=== PATIENT | female | born 1980 | race Caucasian/White ===

== ENCOUNTER 2016-08-11 12:02 | Outpatient (CLI) | payer OTHER | END 2016-08-11 12:03 | disposition home or self-care (01) | DX: M25.551 Pain in right hip (principal); R60.0 Localized edema ==

== ENCOUNTER 2020-01-20 07:33 | Outpatient (CLI) | payer OTHER ==
--- NOTE | 2020-01-21 08:18 | Ultrasound Report ---
PROCEDURE: Abdomen Limited INDICATIONS: ABNORMAL LEVELS OF OTHER SERUM ENZYMES TECHNIQUE: Real-time focused scanning was performed of the abdomen, with image documentation. COMPARISON: None. FINDINGS: The study is limited to the right upper quadrant area at clinician request, given abnormal liver function test. Note is made of hepatomegaly with the craniocaudad length of the liver 19.5 cm. The liver echotexture is increased, diffusely, consistent with fatty infiltration. No intrahepatic b iliary distention is found. The gallbladder is surgically absent. The common duct is normal in calibe r at 3 mm. The pancreas is poorly seen due to bowel gas and body habitus. Right kidney appears normal at 11.9 cm in length and renal cortical thickness of 1.3 cm. IMPRESSION: Hepatomegaly with generalized fatty infiltration and no evidence of focal mass lesion or biliary dist ention. Prior cholecystectomy. Reviewed by: Ruben Medeiros MD on 01/21/2020 8:17 AM PDT Approved by: Ruben Medeiros MD on 01/21/2020 8:17 AM PDT Station ID: [id number]
== END 2020-01-20 07:34 | disposition home or self-care (01) ==
LOC: DI 07:33
PROVIDERS: ATTEND Internal Medicine
DX: K76.0 Fatty (change of) liver, not elsewhere classified (principal); Z90.49 Acquired absence of other specified parts of digestive tract
CPT/HCPCS: 76705

== ENCOUNTER 2022-03-26 08:00 | Outpatient (CLI) | payer OTHER ==
[2022-03-26 16:03] LABS: BASOPHILS # (AUTO) 0.1 10^3/uL (0.0-0.1); BASOPHILS % (AUTO) 0.8 %; EOSINOPHILS # (AUTO) 0.3 10^3/uL (0.0-0.7); EOSINOPHILS % (AUTO) 4.5 %; HCT - HEMATOCRIT 43.5 % (37.0-47.0); HGB - HEMOGLOBIN 14.2 g/dL (12.0-16.0); LYMPHOCYTES # (AUTO) 2.4 10^3/uL (1.5-3.5); LYMPHOCYTES % (AUTO) 37.3 %; MEAN CORPUSCULAR HEMOGLOBIN 28.7 pg (27.0-31.0); MEAN CORPUSCULAR HGB CONC 32.6 g/dL (32.0-36.0); MEAN CORPUSCULAR VOLUME 88.1 fL (81.0-99.0); MEAN PLATELET VOLUME 10.4 fL (7.9-10.8); MONOCYTES # (AUTO) 0.5 10^3/uL (0.0-1.0); MONOCYTES % (AUTO) 8.1 %; NEUTROPHILS # (AUTO) 3.2 10^3/uL (1.5-6.6); NEUTROPHILS % (AUTO) 49.3 %; PLT - PLATELET COUNT 350 10^3/uL (130-450); RED BLOOD COUNT 4.94 10^6/uL (4.20-5.40); RED CELL DISTRIBUTION WIDTH 13.5 % (12.0-15.0); WHITE BLOOD COUNT 6.5 x10^3/uL (4.8-10.8)
[2022-03-26 16:11] LABS: BILIRUBIN,TOTAL 0.6 mg/dL (0.2-1.0); CALCIUM 9.8 mg/dL (8.5-10.3); CREATININE 0.5 mg/dL (0.4-1.0); TOTAL PROTEIN 8.1 g/dL (6.7-8.2)
[2022-03-26 16:14] LABS: BILIRUBIN,URINE NEGATIVE (NEGATIVE); GLUCOSE, URINE (UA) NEGATIVE (NEGATIVE); KETONES,URINE (UA) NEGATIVE (NEGATIVE); LEUKOCYTE ESTERASE, URINE NEGATIVE (NEGATIVE); NITRITE,URINE NEGATIVE (NEGATIVE); OCCULT BLOOD,URINE NEGATIVE (NEGATIVE); PROTEIN,URINE NEGATIVE (NEGATIVE); UROBILINOGEN,URINE 0.2 (NORMAL) E.U./dL (NORMAL)
[2022-03-26 16:18] LABS: CLARITY,URINE CLOUDY (CLEAR)
[2022-03-26 16:26] LABS: AMORPHOUS SEDIMENT,UR Marked /LPF; BACTERIA,URINE None Seen /HPF (None Seen); RBC,URINE 0-5 /HPF (0-5); SQUAMOUS EPITHELIAL CELL,UR RARE Squamous (<= Few); WBC,URINE 0-3 /HPF (0-5)
== END 2022-03-26 23:59 | disposition home or self-care (01) ==
LOC: LAB.R 08:00
PROVIDERS: ATTEND Internal Medicine
DX: R19.7 Diarrhea, unspecified (principal); R11.2 Nausea with vomiting, unspecified
CPT/HCPCS: 80053; 81001; 82150; 83690; 85025; 87086

== ENCOUNTER 2023-02-21 13:33 | Outpatient (CLI) | payer OTHER ==
--- NOTE | 2023-02-21 15:22 | XRAY Report ---
PROCEDURE: Lumbar Spine Complete INDICATIONS: LOW BACK PAIN TECHNIQUE: 5 views of the lumbar spine were acquired. COMPARISON: None. FINDINGS: Bones: 5 [id number] vertebrae are present. There is normal bony alignment. No vertebral body compression fractures. No suspicious bony lesions. Likely is demonstrate no pars defects. Soft tissues: Overlying bowel gas pattern is normal. No suspicious soft tissue calcifications. IMPRESSION: No acute bony abnormality. Reviewed by: González Tompkins MD on 02/21/2023 3:21 PM PDT Approved by: González Tompkins MD on 02/21/2023 3:21 PM PDT Station ID: [id number]
--- NOTE | 2023-02-21 15:30 | XRAY Report ---
PROCEDURE: Sacrum/Coccyx INDICATIONS: COCCYX PAIN TECHNIQUE: 2 views of the sacrum and coccyx acquired. COMPARISON: None. FINDINGS: Bones: No fractures or dislocations. No suspicious bony lesions. Soft tissues: Visualized bowel gas pattern is normal. No suspicious soft tissue densities. IMPRESSION: No acute bony abnormality. Reviewed by: González Tompkins MD on 02/21/2023 3:28 PM PDT Approved by: González Tompkins MD on 02/21/2023 3:28 PM PDT Station ID: [id number]
== END 2023-02-21 23:59 | disposition home or self-care (01) ==
LOC: DI.S 13:33
PROVIDERS: ATTEND Physician Assistant Medical
DX: M54.50 Low back pain, unspecified (principal)